=== PATIENT | female | born 1990 | race Caucasian/White ===

== ENCOUNTER 2019-01-29 16:31 | Inpatient (IN) | payer MEDICAID, OTHER ==
[~2019-01-29] VITALS: Ht 152.4 cm; Wt 135.6 kg
[2019-01-29] MEDS ORDERED: LORAZEPAM 1MG TABLET PO ONE (17:15)
[2019-01-29] MEDS ORDERED: KETOROLAC 60MG/2ML VIAL IM ONE (18:15)
[2019-01-29] MEDS ORDERED: HYDROCODONE/ACETAMINOPHEN 10/325MG TABLET PO ONE (18:15)
[2019-01-29 18:44] LABS: CLARITY URINE TURBID (CLEAR); COLOR URINE YELLOW (YELLOW); KETONES URINE TRACE (NEGATIVE); LEUKOCYTE ESTERASE URINE NEGATIVE (NEGATIVE); NITRITE URINE NEGATIVE (NEGATIVE); OCCULT BLOOD URINE 3+ (NEGATIVE); PROTEIN URINE NEGATIVE (NEGATIVE); SPECIFIC GRAVITY URINE 1.032 (1.005-1.030); UROBILINOGEN URINE 0.2 E.U./dL (0.2-1.0)
[2019-01-29 18:53] LABS: BASOPHILS % 0.2 % (0.0-2.0); EOSINOPHILS % 0.4 % (0.0-5.0); HEMATOCRIT. 39.3 % (36.0-48.0); HEMOGLOBIN. 13.3 g/dL (12.0-16.0); LYMPHOCYTES % 9.1 % (20.0-50.0); MEAN CORPUSCULAR HEMOGLOBIN 27.2 pg (28.0-32.0); MEAN CORPUSCULAR VOLUME 79.9 fL (81.0-99.0); MEAN PLATELET VOLUME 7.9 fl (7.4-10.4); MONOCYTES % 2.7 % (2.0-8.0); NEUTROPHILS % 87.6 % (40.0-76.0); PLATELET 334 x1000/uL (130-400); RED BLOOD CELL COUNT 4.91 mill/uL (4.2-5.4); RED CELL DISTRIBUTION WIDTH 14.4 % (11.6-14.6)
[2019-01-29 18:54] LABS: CHLORIDE 108 mEq/L (98-107)
[2019-01-29] MEDS ORDERED: MORPHINE SULFATE 4 MG/ML CPJ (NOT FOR IM USE) IV ONE (19:15)
[2019-01-29] MEDS ORDERED: ONDANSETRON HCL 4MG/2ML INJ IV ONE (19:15)
[2019-01-29] MEDS ORDERED: SODIUM CHLORIDE 0.9% 1,000 ML IV ONE (19:15)
[2019-01-29] MEDS ORDERED: ZOLPIDEM TARTRATE 5MG TABLET PO PRN (21:00)
[2019-01-29] MEDS ORDERED: CLONIDINE 0.1MG TABLET PO PRN (21:00)
[2019-01-29] MEDS ORDERED: MAGNESIUM/ALUMINUM HYDROXIDE/SIMETHICONE 30ML UDC PO PRN (21:00)
[2019-01-29] MEDS ORDERED: DOCUSATE SODIUM 100MG CAPSULE PO PRN (21:00)
[2019-01-29] MEDS ORDERED: GUAIFENESIN 200MG/10ML SUGAR FREE UDC PO PRN (21:00)
[2019-01-29] MEDS ORDERED: IPRATROPIUM/ALBUTEROL 0.5-3(2.5)MG/3ML NEB INH PRN (21:00)
[2019-01-29] MEDS ORDERED: KETOROLAC 15MG/ML VIAL IV PRN (21:00)
[2019-01-29] MEDS ORDERED: NITROGLYCERIN 0.4MG TABLET SL SL PRN (21:00)
[2019-01-29] MEDS ORDERED: IOHEXOL-300 100 ML BOTTLE ONE (22:51)
[2019-01-29 23:30] VITALS: BP 121/82
[2019-01-30] VITALS (7 sets, daily range): BP systolic 105–138; BP diastolic 51–83
[2019-01-30] MEDS ORDERED: SODIUM CHLORIDE 0.9% 1,000 ML IV SCH
[2019-01-30] MEDS: MORPHINE SULFATE 4 MG/ML CPJ (NOT FOR IM USE) IV PRN ×4 (01:12→21:16)
[2019-01-30] MEDS: ONDANSETRON HCL 4MG/2ML INJ IV PRN ×4 (01:41→21:15)
[2019-01-30] MEDS: FAMOTIDINE 20MG TABLET PO SCH ×2 (09:29→21:17)
[2019-01-30 10:52] LABS: OPIATES URINE SCREEN NEGATIVE (NEGATIVE); PHENCYCLIDINE URINE SCREEN NEGATIVE (NEGATIVE)
[2019-01-30 10:53] LABS: *AMPHETAMINES SCREEN URINE NEGATIVE (NEGATIVE); *BARBITURATES SCREEN URINE NEGATIVE (NEGATIVE); *BENZODIAZEPINES SCREEN URINE NEGATIVE (NEGATIVE); *COCAINE SCREEN URINE NEGATIVE (NEGATIVE); METHADONE URINE SCREEN NEGATIVE (NEGATIVE)
[2019-01-30 11:15] LABS: CANNABINOID URINE SCREEN PRESUMTIVE POSITIVE (NEGATIVE)
[2019-01-30] MEDS: DEXT 5%/0.45% NACL 1000ML 1,000 ML IV SCH (13:05)
[2019-01-30] MEDS: TRAMADOL 50MG TABLET PO PRN (13:06)
[2019-01-30] MEDS ORDERED: BISACODYL 5MG TABLET PO NR (13:30)
[2019-01-30] MEDS: METRONIDAZOLE 500 MG PREMIX 100 ML IV SCH ×2 (13:52→21:17)
[2019-01-30] MEDS: LEVOFLOXACIN 250MG PREMIX 50 ML IV SCH (14:00)
[2019-01-30] MEDS ORDERED: BISACODYL 10MG SUPP PR NR (14:00)
[2019-01-31] VITALS: BP 122/59
[2019-01-31] MEDS: MORPHINE SULFATE 4 MG/ML CPJ (NOT FOR IM USE) IV PRN (03:33)
[2019-01-31] MEDS: DEXT 5%/0.45% NACL 1000ML 1,000 ML IV SCH ×3 (03:45→17:50)
[2019-01-31 04:00] VITALS: BP 104/55
[2019-01-31] MEDS: METRONIDAZOLE 500 MG PREMIX 100 ML IV SCH (05:17)
[2019-01-31 08:00] VITALS: BP_SYST 117; BP_SYST 147; BP_DIAS 64; BP_DIAS 75
[2019-01-31 08:14] LABS: BASOPHILS % 0.4 % (0.0-2.0); EOSINOPHILS % 0.7 % (0.0-5.0); HEMATOCRIT. 38.9 % (36.0-48.0); HEMOGLOBIN. 12.9 g/dL (12.0-16.0); LYMPHOCYTES % 14.1 % (20.0-50.0); MEAN CORPUSCULAR HEMOGLOBIN 26.8 pg (28.0-32.0); MEAN CORPUSCULAR VOLUME 80.8 fL (81.0-99.0); MONOCYTES % 6.4 % (2.0-8.0); NEUTROPHILS % 78.4 % (40.0-76.0); PLATELET 312 x1000/uL (130-400); RED BLOOD CELL COUNT 4.81 mill/uL (4.2-5.4); RED CELL DISTRIBUTION WIDTH 14.6 % (11.6-14.6)
[2019-01-31 08:38] LABS: CHLORIDE 107 mEq/L (98-107)
[2019-01-31 08:43] LABS: AMYLASE 36 IU/L (25-115)
[2019-01-31] MEDS: FAMOTIDINE 20MG TABLET PO SCH ×2 (09:14→20:22)
[2019-01-31 12:00] VITALS: BP 134/79
[2019-01-31] MEDS: LEVOFLOXACIN 250MG PREMIX 50 ML IV SCH (13:22)
[2019-01-31 16:00] VITALS: BP 115/67
[2019-01-31] MEDS: TRAMADOL 50MG TABLET PO PRN (17:15)
[2019-01-31 20:00] VITALS: BP 131/86
[2019-01-31] MEDS: ACETAMINOPHEN 325MG TABLET PO PRN (20:22)
[2019-01-31] MEDS: METRONIDAZOLE 500MG TABLET PO SCH (21:12)
[2019-02-01] VITALS: BP 118/72
[2019-02-01 04:00] VITALS: BP 127/75
[2019-02-01] MEDS: DEXT 5%/0.45% NACL 1000ML 1,000 ML IV SCH (04:15)
[2019-02-01] MEDS: METRONIDAZOLE 500MG TABLET PO SCH (05:48)
[2019-02-01] MEDS: ACETAMINOPHEN 325MG TABLET PO PRN (07:08)
[2019-02-01 07:24] LABS: CHLORIDE 105 mEq/L (98-107)
[2019-02-01 07:54] LABS: HEMATOCRIT. 37.7 % (36.0-48.0); HEMOGLOBIN. 12.5 g/dL (12.0-16.0); MEAN CORPUSCULAR HEMOGLOBIN 26.8 pg (28.0-32.0); MEAN CORPUSCULAR VOLUME 80.6 fL (81.0-99.0); RED BLOOD CELL COUNT 4.68 mill/uL (4.2-5.4); RED CELL DISTRIBUTION WIDTH 14.5 % (11.6-14.6)
[2019-02-01 08:00] VITALS: BP 149/69
[2019-02-01] MEDS: FAMOTIDINE 20MG TABLET PO SCH (08:51)
[2019-02-01] MEDS ORDERED: LEVOFLOXACIN 250MG TABLET PO SCH (11:00)
[2019-02-01 11:04] VITALS: BP 149/69
[2019-02-01 13:34] LABS: PLATELET ESTIMATE NORMAL
[2019-02-01 13:37] LABS: PLATELET 255 x1000/uL (130-400)
== END 2019-02-01 11:10 | disposition home or self-care (01) ==
LOC: ER 16:31 → CMPBEDREQ 20:42 → 6EST 20:47 → ENRESERV 21:05 → 6EST 01-30 04:01
PROVIDERS: ADMIT Internal Medicine; ATTEND Internal Medicine
DX: K80.20 Calculus of gallbladder without cholecystitis without obstruction (principal); K85.10 Biliary acute pancreatitis without necrosis or infection; K76.0 Fatty (change of) liver, not elsewhere classified; E66.01 Morbid (severe) obesity due to excess calories; Z68.43 Body mass index [BMI] 50.0-59.9, adult; K59.00 Constipation, unspecified; F12.10 Cannabis abuse, uncomplicated; Z79.899 Other long term (current) drug therapy
CPT/HCPCS: 36415; 71045; 74176; 76705; 78227; 80048; 80061; 80305; 82150; 83036; 93005; 96374; 99285; A9537; J1885; J1956; J2270; J2405; J3490; J7030; Q9967